=== PATIENT | female | born 2000 | race Caucasian/White ===

== ENCOUNTER 2023-07-16 13:41 | Outpatient (REF) | payer OTHER, SELFPAY ==
--- NOTE | ~2023-07-16 | MR_ITS ---
EXAMINATION: MRI LOWER EXTREMITY, WITHOUT CONTRAST, LEFT CLINICAL INDICATION: Left lower leg pain. COMPARISON: None available. TECHNIQUE: Multiplanar MR imaging was obtained through the left lower leg without contrast material on a 1.5 Larissa magnet. FINDINGS: As seen on image 24/49 of series 8, there is a small 3 mm focus of ill-defined intermediate signal intensity within the anterior cortex of the mid tibial shaft which is not well-seen on other sequences. Surrounding marrow signal is normal. No significant periostitis. No additional osseous abnormalities are identified . Imaged articular cartilage at the knee joints and ankles is unremarkable. Musculature is normal in signal intensity without edema signal or atrophy. Tendons appear intact. Mild edema signal noted in the anteromedial subcutaneous fat at the level of the mid tibial diaphysis. No joint effusions are identified. No fluid collections are identified in the subcutaneous fat. MR/MR lower leg LT wo con IMPRESSION: Small 3 mm focus of ill-defined intermediate signal intensity within the anterior cortex of the mid tibial shaft is of uncertain etiology. This could correspond to a resolving osseous contusion or stress reaction. If the clinical course does not continue to improve since the injury, consider CT to exclude other abnormalities such as a developing osteoma.
== END 2023-07-16 13:42 | disposition home or self-care (01) ==
LOC: HO.MRI 13:41
PROVIDERS: Visit Provider Family Medicine Sports Medicine
DX: M79.605 Pain in left leg (principal)
CPT/HCPCS: 73718